=== PATIENT | male | born 1960 | race Caucasian/White ===

== ENCOUNTER 2017-11-08 08:01 | Emergency (ER) | payer OTHER ==
[~2017-11-08] VITALS: Ht 170.2 cm; Wt 74.3 kg
[2017-11-08] MEDS ORDERED: ALPR2TAB2 PO (08:25)
[2017-11-08 09:25] VITALS: BP 107/79
== END 2017-11-08 09:47 | disposition home or self-care (01) ==
LOC: ED 09:30
DX: S06.0X1A Concussion with loss of consciousness of 30 minutes or less, initial encounter (principal); F17.200 Nicotine dependence, unspecified, uncomplicated; W01.0XXA Fall on same level from slipping, tripping and stumbling without subsequent striking against object, initial encounter; Y93.89 Activity, other specified; Y92.009 Unspecified place in unspecified non-institutional (private) residence as the place of occurrence of the external cause; Y99.8 Other external cause status
CPT/HCPCS: 70450; 99284